=== PATIENT | female | born 1975 | race Asian ===

== ENCOUNTER 2020-03-05 10:50 | Emergency (ER) | payer MEDICAID ==
[~2020-03-05] VITALS: Ht 149.9 cm; Wt 45.1 kg
[2020-03-05 11:05] VITALS: BP 118/76
== END 2020-03-05 11:46 | disposition home or self-care (01) ==
LOC: ER 10:51
DX: R20.2 Paresthesia of skin (principal); R53.1 Weakness; R29.810 Facial weakness
CPT/HCPCS: 99281

== ENCOUNTER 2023-12-03 07:35 | Outpatient (CLI) | payer MEDICAID | END 2023-12-03 23:59 | disposition home or self-care (01) | LOC: RAD 07:35 | PROVIDERS: ATTEND Nurse Practitioner Family | DX: R79.89 Other specified abnormal findings of blood chemistry (principal) | CPT/HCPCS: 76700 ==